=== PATIENT | female | born 1970 | race Caucasian/White ===

== ENCOUNTER 2016-06-10 05:15 | Inpatient (IN) | payer OTHER ==
[2016-05-31 10:54] VITALS: BMI 33.0
--- NOTE | 2016-05-31 11:22 | PAT Medication Instructions ---
Service Date May 31, 2016. Current Home Medication List Cholecalciferol (Vitamin D3), 5,000 UNITS PO QAM Duloxetine Hcl (Cymbalta), 30 MG PO BID Fluticasone Propionate (Nasal) (Flonase Allergy Relief), 1 SPRAY NA BID Methocarbamol (Methocarbamol), 375-750 MG PO Q8 PRN for Back Spasm Naproxen (Naprosyn), 500 MG PO BID Tramadol Hcl (Ultram), 50 MG PO Q4H PRN for Knee Pain Trazodone Hcl (Trazodone), 50 MG PO HS Medication Instructions For Your Scheduled Surgery - Hold the following medications the morning of surgery: Methocarbamol (Methocarbamol), 375-750 MG PO Q8 PRN for Back Spasm Naproxen (Naprosyn), 500 MG PO BID (not told to stop by surgeon) Cholecalciferol (Vitamin D3), 5,000 UNITS PO QAM - Take the following medications the morning of surgery with a sip of water: Tramadol Hcl (Ultram), 50 MG PO Q4H PRN for Knee Pain (can take up to four hours prior to surgery if needed) Fluticasone Propionate (Nasal) (Flonase Allergy Relief), 1 SPRAY NA BID Duloxetine Hcl (Cymbalta), 30 MG PO BID - Take the following medications as scheduled the night before surgery: Trazodone Hcl (Trazodone), 50 MG PO HS Tramadol Hcl (Ultram), 50 MG PO Q4H PRN for Knee Pain Methocarbamol (Methocarbamol), 375-750 MG PO Q8 PRN for Back Spasm Fluticasone Propionate (Nasal) (Flonase Allergy Relief), 1 SPRAY NA BID Duloxetine Hcl (Cymbalta), 30 MG PO BID If you have any questions please call us at [phone] or [phone] ( Jaqueline) or [phone]
--- NOTE | 2016-05-31 12:06 | DIAGNOSTIC IMAGING REPORT ---
CHEST PREADMISSION(PA/LAT) CLINICAL HISTORY: Preoperative chest COMPARISON STUDY: 11/15/2012 FINDINGS: The cardiac and mediastinal contours are normal. There is no evidence of focal pulmonary consolidation. There is no evidence of failure. No pleural effusions are visualized.[ IMPRESSION: No active disease in the chest. Electronically signed by: Francisco Rose M.D. 05/31/2016 12:04 PM Dictated Date/Time: 05/31/2016 12:04 PM
[2016-05-31 12:08] LABS: BASO % 0.4 %; BASO ABS # 0.02 K/uL (0-0.2); COMPLETE YES; EOS % 2.1 %; HEMATOCRIT 36.5 % (37-47); LYMPH % 30.7 %; LYMPH ABS # 1.64 K/uL (1.2-3.4); MEAN CELL VOLUME 92.2 fL (80-100); MEAN CORPUSCULAR HEMOGLOBIN 30.8 pg (25-34); MEAN CORPUSCULAR HGB CONC 33.4 g/dl (32-36); MEAN PLATELET VOLUME 11.8 fL (7.4-10.4); MONO % 6.9 %; NEUT % 59.9 %; PLATELET COUNT 181 K/uL (130-400); RED BLOOD COUNT 3.96 M/uL (4.2-5.4); WHITE BLOOD COUNT 5.35 K/uL (4.8-10.8)
[2016-05-31 12:13] LABS: URINE APPEARANCE CLEAR (CLEAR); URINE BILIRUBIN NEG (NEG); URINE COLOR YELLOW; URINE EPITHELIAL CELL AUTO >30 /lpf (0-5); URINE NITRITE NEG (NEG); URINE PH 8.5 (4.5-7.5); URINE SPECIFIC GRAVITY 1.014 (1.000-1.030); UROBILINOGEN NEG (NEG)
[2016-05-31 12:22] LABS: MANUAL MICROSCOPIC REQUIRED? NO; REVIEW REQ? NO
[2016-05-31 12:29] LABS: BUN/CREATININE RATIO 17.9 (10-20); CREATININE 0.88 mg/dl (0.60-1.20)
[2016-06-10] VITALS (7 sets, daily range): BP systolic 97–159; BP diastolic 58–72; PULSE 67–87; TEMP 36.6–37; O2SAT 95–100; Ht 172.7 cm; Wt 97.7 kg
[~2016-06-10] VITALS: Ht 172.7 cm; Wt 97.7 kg
[~2016-06-10 05:15] MED LIST: CHOL1000 PO; CYM/30 PO; FLUT0.15; NAPR-1169 PO; RBX750 PO; TRAZ50TA35 PO; ULT/50 PO
[2016-06-10] MEDS ORDERED: CeleBREX 200 MG CAP PO SCH (06:00)
[2016-06-10] MEDS ORDERED: PREGABALIN 75 MG CAP PO SCH (06:00)
[2016-06-10] MEDS ORDERED: LACTATED RINGER'S 1000ML 1,000 ML IV SCH (06:00)
[2016-06-10] MEDS ORDERED: CEFAZOLIN 2000 MG/60 ML D5W IV SCH (06:00)
[2016-06-10] MEDS ORDERED: MIDAZOLAM HCL 1 MG/ML 2ML VIAL ONE (06:39)
[2016-06-10] MEDS ORDERED: FENTANYL CITRATE INJ 50 MCG/1 ML 2 ML VIAL ONE ×2 (06:39→08:09)
[2016-06-10] MEDS ORDERED: HYDROmorphone INJ 2 MG/ML SYR/VIAL IV PRN (07:15)
[2016-06-10] MEDS ORDERED: LABETALOL HCL IV 5 MG/ML 20ML IV PRN (07:15)
[2016-06-10] MEDS ORDERED: PHENYLEPHRINE 100MCG/ML 5ML SYR IV PRN (07:15)
[2016-06-10] MEDS ORDERED: NALOXONE HCL 0.4 MG/1 ML VIAL/CARP IV PRN ×3 (07:15→09:00)
[2016-06-10] MEDS ORDERED: FLUMAZENIL 0.1 MG/1 ML 10 ML VIAL IV PRN (07:15)
[2016-06-10] MEDS ORDERED: ONDANSETRON INJ 2 MG/ML 2 ML VIAL IV PRN ×2 (07:15→09:00)
[2016-06-10] MEDS ORDERED: MEPERIDINE HCL 25 MG/ML CARP IV PRN (07:15)
[2016-06-10] MEDS ORDERED: ATROPINE SULFATE 0.1 MG/ML 5ML SYR IV PRN (07:15)
[2016-06-10] MEDS ORDERED: EpHEDrine SULFATE INJ 50 MG/ML AMP IV PRN (07:15)
--- NOTE | 2016-06-10 07:43 | History and Physical ---
History & Physical Date Jun 10, 2016. Chief Complaint LBP and leg pain History of Present Illness The patient is a 45 year old female with complaints of above due to MRI and xray documented L4-5 stenosis and gr I deg spondylolisthesis. she failed to respond to non op treatment. intermittent numbness L LE. no weakness Past Medical/Surgical History Medical Problems: (1) Arthritis (2) DM (diabetes mellitus) ?ank spondylitis R GOYO R shoulder surg obesity Additional History Hepatic Disease: No Endocrine Disorder: Yes Kidney Disease: No Hypertension: No Heart Disease: No Bleeding Tendencies: No Infectious Diseases: No Allergies Coded Allergies: Hydrocodone (Verified Allergy, Intermediate, face breaks out, 06/10/16) Acetaminophen (Verified Allergy, Unknown, rash, 06/10/16) Home Medications Scheduled Cholecalciferol (Vitamin D3), 5,000 UNITS PO QAM Duloxetine Hcl (Cymbalta), 30 MG PO BID Fluticasone Propionate (Nasal) (Flonase Allergy Relief), 1 SPRAY NA BID Naproxen (Naprosyn), 500 MG PO BID Trazodone Hcl (Trazodone), 50 MG PO HS Scheduled PRN Methocarbamol (Methocarbamol), 375-750 MG PO Q8 PRN for Back Spasm Tramadol Hcl (Ultram), 50 MG PO Q4H PRN for Knee Pain Physical Examination Skin: warm/dry Eyes: normal inspection, sclerae normal ENT: normal ENT inspection Head: normocephalic, atraumatic Neck: supple, trachea midline Respiratory/Chest: lungs clear, no respiratory distress Cardiovascular: regular rate, rhythm Back: normal inspection Extremities: normal inspection, normal range of motion Neurologic/Psych: no motor/sensory deficits, alert, normal reflexes, oriented x 3 Diagnosis L4-5 stenosis/degen spondy gr I Plan of Treatment L4-5 dec/fusion
[2016-06-10] MEDS ORDERED: HYDROmorphone INJ 2 MG/ML SYR/VIAL ONE (08:09)
[2016-06-10] MEDS ORDERED: THROMBIN 5000 UNITS KIT TOP ONE (08:25)
[2016-06-10] MEDS ORDERED: BACITRACIN 50000 UNIT VIAL IR ONE (08:25)
[2016-06-10] MEDS ORDERED: FLOSEAL HEMOSTATIC MATRIX 10ML TOP ONE (08:25)
[2016-06-10] MEDS ORDERED: DURASEAL DURAL SEALANT 5ML TOP ONE (08:25)
[2016-06-10] MEDS ORDERED: THROMBIN FOR SOLN 20000 UNIT KIT TOP ONE (08:25)
[2016-06-10] MEDS ORDERED: BUPIVACAINE/EPINEPHRINE 0.5% MPF 1:200,000 30 ML VIAL INJ ONE (08:25)
[2016-06-10] MEDS ORDERED: SODIUM CHLORIDE 0.9% 1000ML 1,000 ML IV SCH (08:58)
--- NOTE | 2016-06-10 08:58 | [facility] Post Operative Brief Note ---
Immediate Operative Summary Operative Date Jun 10, 2016. Pre-Operative Diagnosis SPINAL STENOSIS Post-Operative Diagnosis SAME PREOP Procedure(s) Performed L4-5 DECOMPRESSION AND INSTRUMENTED FUSION,, USE OF INFUSE AND ARTERIOCYTE Surgeon DR. Jose NEWMAN Purchasing Buyer Surgeon(s) GISSEL PAC Estimated Blood Loss 325ml Findings dict Specimens NONE
[2016-06-10] MEDS ORDERED: HYDROmorphone HCL 0.5MG/ML 50 ML CASSETTE IV PRN (09:00)
[2016-06-10] MEDS ORDERED: METOCLOPRAMIDE HCL INJ 5 MG/ML 2 ML VIAL IV PRN (09:00)
[2016-06-10] MEDS ORDERED: LORAZEPAM INJ 0.5 MG in SYRINGE 0.75 ML IV PRN (09:00)
[2016-06-10] MEDS ORDERED: SOD PHOSPHATE/SOD BIPHOSPHATE ENEMA 132 ML BTL PR PRN (09:00)
[2016-06-10] MEDS ORDERED: MAGNESIUM HYDROXIDE SUSP 30 ML UDC PO PRN (09:00)
[2016-06-10] MEDS ORDERED: PROMETHAZINE HCL INJ 12.5 MG in SODIUM CHLORIDE 0.9% 50ML 50 ML IV PRN (09:00)
[2016-06-10] MEDS ORDERED: FAMOTIDINE 20 MG TAB PO PRN (09:00)
[2016-06-10] MEDS ORDERED: LORAZEPAM 0.5 MG TAB PO PRN (09:00)
[2016-06-10] MEDS ORDERED: hydrOXYzine HCL 25 MG TAB PO PRN (09:00)
[2016-06-10] MEDS ORDERED: BISACODYL 10 MG SUPP PR PRN (09:00)
[2016-06-10] MEDS ORDERED: ALUMINUM/MAGNESIUM SUSP 30 ML UDC PO PRN (09:00)
[2016-06-10] MEDS ORDERED: HYDROmorphone HCL 0.5MG/ML 50 ML CASSETTE ONE (09:10)
[2016-06-10] MEDS ORDERED: RXC5 PO (09:11)
--- NOTE | 2016-06-10 09:12 | Discharge Instructions ---
Discharge Instructions Admission Reason for Admission: Lumbar Spinal Stenosis Discharge Discharge Diagnosis / Problem: Lumbar Stenosis Discharge Goals Goal(s): Decrease discomfort, Improve function, Increase independence Activity Recommendations Activity Limitations: as noted below Lifting Limitations: no more than 5 pounds Exercise/Sports Limitations: until after follow-up appointment May Resume Sexual Activity: after follow-up appointment Shower/Bathe: may shower/bathe in 3 days . Instructions / Follow-Up Instructions / Follow-Up ACTIVITY RECOMMENDATIONS: SELF CARE INSTRUCTIONS AFTER THORACIC/LUMBAR FUSIONS 1. You may walk to your tolerance. It is good exercise for your legs and back. Expect some back and intermittent leg aches and pains. 2. You may perform "counter-top" level activities (make a sandwich, stephen with a project, etc.). 3. No bending or lifting of more than 10 pounds or back twisting of any nature (roll like a log when turning in bed). 4. You may ride in a car for 20-30 minutes at a time. No driving until after your first visit with your doctor. 5. Frequent changes of position and restricting sitting to 30 minutes at a time will help limit the amount of back spasms and stiffness you may experience. 6. You may discontinue the use of ambulatory aids (cane, crutches, etc.) once your strength and confidence allow. 7. You may lokie engineer the shower and let water strike your incision when you arrive home at least once daily. Do not take a tub bath, sit in a hot tub or go into a swimming pool until after your first recheck in the office. SPECIAL CARE INSTRUCTIONS: VERY IMPORTANT TO READ AND REVIEW A. Your surgical incision has been closed with a cosmetic suture under the skin that will dissolve in about 6 weeks. In 14 days, you can use a pair of clean scissors and cut the suture that is left outside of the skin at the ends of your incision. 1. The small skin tapes can be removed 7 days after surgery if they have not fallen off by that point. 2. You may keep the wound open to air as much as possible to promote healing after post-op day number 5 unless told otherwise by your doctor. 3. If you think the wound looks like it is becoming infected (redness or worsening drainage) and/or you are experiencing fever, chill or worsening back pain and muscle spasms, contact the office so that we may evaluate you as soon as possible. B. Complications are uncommon, but please contact us if you have any signs or symptoms of: 1. wound infection (fever higher than 102.5 degrees F, redness, separation of wound, drainage, or increasing pain from the incision) 2. blood clots in legs (pain, swelling, redness and warmth in legs) 3. urinary tract infection (fever higher than 102.5 degrees F, burning upon urination or increased frequency of urination) 4. nerve problems (inability to walk on your toes or heels, numbness, loss of bowel or bladder control) 5. any other symptoms that concern you C. Please call the office at if you have any concerns or questions about your operation or recovery. D. No smoking! Smoking drastically decreases the chance of a solid fusion. E. Do not take any anti-inflammatory medications (Indocin, Advil, Motrin, Aspirin, Naprosyn, etc.) as these may inhibit the chance of a solid fusion. Tylenol is okay to take for pain. MANAGING PAIN AFTER SPINAL SURGERY 1. Narcotic medication is intended for short-term use and will be provided for surgical pain. Surgical pain usually lasts for a period of 4-6 weeks. Narcotic medication includes Percocet, Vicodin, Darvocet, Tylenol #3 or Lortab. 2. Longer-term pain is more appropriately treated with non-narcotic medication such as Tylenol ES. 3. Muscle spasm is not appropriately treated with narcotics. Muscle relaxers such as Soma, Flexeril or Skelaxin can be used along with Tylenol ES. 4. Remember that we all live with some "aches and pains". This is not unusual or uncommon after an injury or as we get older. a. Back pain is expected and may include muscle spasms for 4 to 6 weeks after surgery. The pain should gradually improve. If the pain worsens for no apparent reason, please contact the office. b. Intermittent leg pain may also be experienced and should not be concerned about unless it worsens for no apparent reason. If so, please contact the office. 5. We will provide appropriate medication within the normal guidelines of their prescribed use. We will also be very cautious and aware of potential abuse and extended duration of patients' medication needs. a. Pain medications are for your comfort and to assist with sleep and rest so that the tissue can heal. They are not provided in order to return to normal activity and should not be used through the day. To do so or worsening pain at night can result from ongoing tissue damage and development of tolerance to the prescribed medicine. 6. Please allow 2-3 days to process refills. Prescriptions will not be mailed but must be picked up at the office. FOLLOW UP VISIT: Keep your scheduled follow-up appointment. Any questions, please call the office at . Current Hospital Diet Patient's current hospital diet: Regular Diet Discharge Diet Recommended Diet: Regular Diet Procedures Procedures Performed: L4-5 DECOMPRESSION AND INSTRUMENTED FUSION,, USE OF INFUSE AND ARTERIOCYTE Pending Studies Studies pending at discharge: no Laboratory Results Hemoglobin A1c Test 03/19/16 11:44 Range/Units Estimated Average Glucose 117 mg/dl Hemoglobin A1c 5.7 H 4.5-5.6 % Medical Emergencies . Who to Call and When: Medical Emergencies: If at any time you feel your situation is an emergency, please call 911 immediately. . Non-Emergent Contact Non-Emergency issues call your: Surgeon Call Non-Emergent contact if: temperature is above 101, your pain is not controlled, your pain is worsening, wound has increased drainage, wound has increased redness, wound has increased pain, you have any medication questions . "Provider Documentation" section prepared by Kenan Hoover. VTE Core Measure Inpt VTE Proph given/why not?: Chiquis Parmar
[2016-06-10] MEDS ORDERED: DEXAMETHASONE SOD INJ 4 MG/ML VIAL ONE (09:15)
[2016-06-10] MEDS ORDERED: PROPOFOL IV EMULSION 10 MG/ML 20 ML VIAL IV ONE (09:15)
[2016-06-10] MEDS ORDERED: LIDOCAINE HCL 2% 2 ML VIAL (20MG/ML) ONE (09:15)
[2016-06-10] MEDS ORDERED: NEOSTIGMINE METHYLSULFATE 1 MG/ML 10ML VIAL ONE (09:15)
[2016-06-10] MEDS ORDERED: GLYCOPYRROLATE INJ 0.2 MG/ML VIAL ONE (09:15)
[2016-06-10] MEDS ORDERED: ROCURONIUM BROMIDE 10 MG/ML 5 ML VIAL ONE (09:15)
[2016-06-10] MEDS: FENTANYL CITRATE INJ 50 MCG/1 ML 2 ML VIAL IV PRN ×4 (09:15→09:45)
[2016-06-10] MEDS ORDERED: EpHEDrine SULFATE 50MG/5ML SYR ONE (09:15)
[2016-06-10] MEDS ORDERED: ONDANSETRON INJ 2 MG/ML 2 ML VIAL ONE (09:15)
--- NOTE | 2016-06-10 09:17 | DIAGNOSTIC IMAGING REPORT ---
LUMBAR SPINE, INTRAOPERATIVE FLUOROSCOPY HISTORY: L4-5 decompression/fusion. FLUOROSCOPY TIME: 5 seconds. FINDINGS: Intraoperative fluoroscopy was provided for the lumbar spine. 2 fluoroscopic spot images were obtained. Posterior decompression and fusion at L4-L5 with pedicle screws and rods. The hardware appears intact. IMPRESSION: Fluoroscopy provided for a L4-5 decompression/fusion. Electronically signed by: Junaid Ro M.D. 06/10/2016 9:15 AM Dictated Date/Time: 06/10/2016 9:15 AM
--- NOTE | 2016-06-10 10:11 | Anesthesiology Progress Note ---
Anesthesia Post Op Note Date & Time Jun 10, 2016 at 10:10 Vital Signs Pain Intensity: 3 Vital Signs Past 12 Hours Date Time Temp Pulse Resp B/P Pulse Ox O2 Delivery O2 Flow Rate FiO2 06/10/16 09:55 80 16 126/68 99 Mask 5 06/10/16 09:45 82 16 128/75 99 Mask 5 06/10/16 09:35 85 16 131/69 100 Mask 5 06/10/16 09:25 75 14 138/75 100 Mask 10 06/10/16 09:15 65 14 129/70 100 Mask 10 06/10/16 09:12 36.6 91 15 123/78 100 Mask 10 06/10/16 05:35 36.8 67 18 108/72 95 Room Air Notes Mental Status: alert / awake / arousable, participated in evaluation Pt Amnestic to Procedure: Yes Nausea / Vomiting: adequately controlled Pain: adequately controlled Airway Patency, RR, SpO2: stable & adequate BP & HR: stable & adequate Hydration State: stable & adequate Anesthetic Complications: no major complications apparent
--- NOTE | 2016-06-10 11:22 | History & Physical Bridge Note ---
H&P Re-Evaluation Bridge Note: I have examined the patient, reviewed the History & Physical and in the interval since the performance of the History & Physical I have noted the following changes of clinical significance: No changes noted
[2016-06-10] MEDS: LACTATED RINGER'S 1000ML 1,000 ML IV SCH ×2 (11:29→21:29)
--- NOTE | 2016-06-10 12:23 | OPERATIVE REPORT ---
DATE OF OPERATION: 06/10/2016 PREOPERATIVE DIAGNOSES: 1. L4-L5 spinal stenosis. 2. L4-L5 degenerative spondylolisthesis -- grade 1. POSTOPERATIVE DIAGNOSIS: Same. PROCEDURES: 1. L4 laminectomy with bilateral medial facetectomies. 2. Nonsegmental pedicle screw instrumentation -- bilateral L4 and L5 with K2M [place] pedicle screws. 3. Posterolateral fusion L4-L5 -- bilateral with Infuse BMP on a collagen sponge, tricalcium phosphate, local bone, bone putty and bone marrow aspirate. 4. Right iliac crest bone marrow aspiration, stem cell concentration Arteriocyte. SURGEON: Dr. Meraz. SPORTS DOCTOR: Kenan Hoover PA-C. He participated in all portions of the procedure and was critical for performance of the procedure. Please note Kenan Hoover, participated with positioning, prepping, draping, retraction, and wound closure. ANESTHESIA: General endotracheal anesthesia. ESTIMATED BLOOD LOSS: Minimal. IV FLUIDS: Per anesthesia record. OPERATION AND FINDINGS: PROCEDURE: After identification of patient and operative level, she was brought to the OR where she underwent induction of general anesthesia. She was then positioned prone on [facility] OR table. All bony prominences were well padded. Care was taken to avoid pressure on the periorbital area. Lumbosacral area was sterilely prepped and draped in usual fashion. Antibiotics were administered. Time-out was performed. Level was confirmed and skin incision was infiltrated with 0.5% Marcaine with epinephrine. I made skin incision from spinous process of L3-L5 and performed routine posterior exposure, placed Gelpi retractors and confirmed level with fluoroscopy. I did a L4 laminectomy and removed ligamentum flavum and the medial facets at L4-5 and completed decompression with Kerrisons. I palpated the nerve roots were decompressed bilaterally at L4 and L5 and then proceeded to place pedicle screws bilaterally at each level. Screws were checked with fluoroscopy. They had good purchase. I lowered the Hakeem frame and applied rods and end caps final tightening. I irrigated with bacitracin solution and decorticated transverse process of L4-L5 with a high speed bur as well as the facets. I aspirated bone marrow from the right iliac crest via separate stab incision with a Jamshidi needle and concentrated with Arteriocyte system and applied to bone graft. I then confirmed hemostasis and closed in layered fashion over MAYA drain. All sponge and needle counts were correct at the end of the case. I attest to the content of the Intraoperative Record and any orders documented therein. Any exceptio ns are noted below.
[2016-06-10] MEDS: CLINDAMYCIN IV 600 MG in DEXTROSE 5% ADD-VANTAGE 50ML 50 ML IV SCH (16:27)
[2016-06-10] MEDS: DEXAMETHASONE INJ 6 MG in SYRINGE 0 ML IV SCH (16:27)
[2016-06-10] MEDS: DOCUSATE SODIUM/SENNA 50/8.6MG TAB PO SCH (20:37)
[2016-06-11] MEDS: DEXAMETHASONE INJ 6 MG in SYRINGE 0 ML IV SCH ×2 (00:20→08:03)
[2016-06-11] MEDS: CLINDAMYCIN IV 600 MG in DEXTROSE 5% ADD-VANTAGE 50ML 50 ML IV SCH (00:20)
[2016-06-11 03:39] VITALS: BP 104/68; PULSE 85; TEMP 36.7; O2SAT 95
[2016-06-11] MEDS ORDERED: DC PCA SCH (06:00)
[2016-06-11] MEDS ORDERED: HYDROmorphone INJ 0.5 MG/0.5 ML SYR IV PRN (06:00)
[2016-06-11] MEDS ORDERED: NURSING DECISION MEDICATION ORDER SCH (06:30)
[2016-06-11 07:01] VITALS: BP 104/63; PULSE 77; TEMP 36.9; O2SAT 94
--- NOTE | 2016-06-11 07:04 | Orthopedic Progress Note ---
Orthopedic Progress Note Date of Service Jun 11, 2016. Subjective Reports: feeling well, pain controlled w PO medications, Denies: SOB, calf pain , chest pain, complaints, light headedness, nausea / vomiting Additional Notes: Doing well with no complaints. Resting comfortably. Has been out of bed to chair without difficulty. Pre op symptoms improved. Back is controlled. Medically stable. Objective calves soft nontender, N/V intact, capillary refill less than 2 sec., dressing C /D/I, A&O x3, toes mobile, hemovac drainage Date Time Temp Pulse Resp B/P Pulse Ox O2 Delivery O2 Flow Rate FiO2 06/11/16 07:01 36.9 77 19 104/63 94 Room Air 06/11/16 03:39 36.7 85 16 104/68 95 Room Air 06/10/16 23:55 Room Air 06/10/16 23:10 37.0 73 16 97/58 95 Room Air 06/10/16 19:18 36.6 73 16 101/64 95 Room Air 06/10/16 14:30 Nasal Cannula 2.0 06/10/16 14:00 36.7 69 19 103/61 99 Nasal Cannula 2.0 06/10/16 12:04 36.7 78 18 103/67 100 Nasal Cannula 2.0 06/10/16 11:27 36.6 83 16 114/72 98 Nasal Cannula 2.0 06/10/16 11:13 36.9 87 16 159/69 96 Nasal Cannula 2.0 06/10/16 10:45 36.6 86 18 121/87 99 Nasal Cannula 3 06/10/16 10:30 80 18 121/73 99 Mask 5 06/10/16 10:15 78 15 131/70 99 Mask 5 06/10/16 10:05 80 15 126/69 99 Mask 5 06/10/16 10:05 36.7 80 15 119/70 99 Mask 5 06/10/16 09:55 80 16 126/68 99 Mask 5 06/10/16 09:45 82 16 128/75 99 Mask 5 06/10/16 09:35 85 16 131/69 100 Mask 5 06/10/16 09:25 75 14 138/75 100 Mask 10 06/10/16 09:15 65 14 129/70 100 Mask 10 06/10/16 09:12 36.6 91 15 123/78 100 Mask 10 Laboratory Results 24 Hours: Test 06/11/16 04:44 Assessment & Plan Assessment: s/p lumbar decompression and fusion Plan: PT, pain control, d/c holland, continue MAYA, dvt prophylaxis, expect discharge home sat morning.
[2016-06-11 07:30] LABS: COMPLETE YES; HEMATOCRIT 31.9 % (37-47); IG% 0.2 %; LYMPH ABS # 0.72 K/uL (1.2-3.4); MEAN CELL VOLUME 91.9 fL (80-100); MEAN CORPUSCULAR HEMOGLOBIN 30.5 pg (25-34); MEAN CORPUSCULAR HGB CONC 33.2 g/dl (32-36); MEAN PLATELET VOLUME 11.7 fL (7.4-10.4); MONO % 3.5 %; NEUT % 90.3 %; PLATELET COUNT 176 K/uL (130-400); RED BLOOD COUNT 3.47 M/uL (4.2-5.4)
--- NOTE | 2016-06-11 07:33 | Anesthesiology Progress Note ---
Anesthesia Post Op Note Date & Time Jun 11, 2016 at 07:32 Vital Signs Pain Intensity: 0.0 Vital Signs Past 12 Hours Date Time Temp Pulse Resp B/P Pulse Ox O2 Delivery O2 Flow Rate FiO2 06/11/16 07:01 36.9 77 19 104/63 94 Room Air 06/11/16 03:39 36.7 85 16 104/68 95 Room Air 06/10/16 23:55 Room Air 06/10/16 23:10 37.0 73 16 97/58 95 Room Air Notes Mental Status: alert / awake / arousable, participated in evaluation Pt Amnestic to Procedure: Yes Nausea / Vomiting: adequately controlled Pain: adequately controlled Airway Patency, RR, SpO2: stable & adequate BP & HR: stable & adequate Hydration State: stable & adequate Anesthetic Complications: no major complications apparent
[2016-06-11 07:59] LABS: BUN/CREATININE RATIO 18.9 (10-20); CALCIUM 9.1 mg/dl (8.5-10.1); CREATININE 0.76 mg/dl (0.60-1.20); POTASSIUM 3.9 mmol/L (3.5-5.1)
[2016-06-11 10:45] VITALS: BP 126/70; PULSE 85; O2SAT 95
[2016-06-11] MEDS: OXYCODONE HCL IR 5 MG TAB (IMMEDIATE RELEASE) PO PRN ×2 (12:38→20:41)
[2016-06-11 15:12] VITALS: BP 108/68; PULSE 84; TEMP 36.7; O2SAT 96
[2016-06-11 16:00] VITALS: O2SAT 96
[2016-06-11] MEDS: DOCUSATE SODIUM/SENNA 50/8.6MG TAB PO SCH (20:41)
[2016-06-11 22:47] VITALS: BP 116/74; PULSE 66; TEMP 36.7; O2SAT 96
[2016-06-12] MEDS ORDERED: POLYETHYLENE (MIRALAX) 17 GM PACK PO SCH (06:00)
[2016-06-12 07:08] VITALS: BP 102/69; PULSE 63; TEMP 36.5; O2SAT 99
[2016-06-12] MEDS: OXYCODONE HCL IR 5 MG TAB (IMMEDIATE RELEASE) PO PRN (08:24)
[2016-06-12 11:03] VITALS: BP 102/69; PULSE 63; TEMP 36.5; O2SAT 99
--- NOTE | 2016-06-21 14:54 | DISCHARGE SUMMARY ---
PRINCIPAL DIAGNOSIS: L4-L5 spinal stenosis, grade 1 spondylolisthesis. POSTOPERATIVE DIAGNOSIS: Same. PROCEDURE: L4-L5 decompression and instrumented fusion. SURGEON: Dr. Michael Meraz. ELASTIC CUTTER: Kenan Hoover PA-C. HISTORY OF PRESENT ILLNESS: Please refer to EMR. HOSPITAL COURSE: On the above date of 06/10/2016 Ms. Kilgore was admitted to [facility] with the above diagnoses. She was taken to preoperative holding where she was identified, evaluated and cleared for surgical procedure. She was transported to the operating room, introduced with general endotracheal anesthesia, sterile conditions were set and she successfully underwent the above procedure without complication or issues. She was awakened in stable and satisfactory condition and transported to postoperative recovery. Here her vital signs and pain were monitored and managed. She remained medically stable taken to orthopedic floor. Throughout her stay, her vital signs, pain and labs were routinely monitored and managed through physician direction probably with no incidences. She participated in physical therapy with good noted progress. MAYA output significantly diminished throughout her hospitalization. DVT and GI prophylactic measures were intact. She was evaluated on 06/12/2016 by provider and indicated for return home. On this date, she was discharged from [facility]. DISPOSITION: Home. DISPOSITION CONDITION: Stable. NOTED COMPLICATIONS OR ISSUES: Zero. DISCHARGE INSTRUCTIONS: Please refer to EMR.
== END 2016-06-12 11:50 | disposition home or self-care (01) | DRG 460 ==
LOC: ENRESERVTM → ENRESERVDT → C.ACU 05:15 → C.MSW 07:30
PROVIDERS: ADMIT Orthopaedic Surgery Orthopaedic Surgery of the Spine; ATTEND Orthopaedic Surgery Orthopaedic Surgery of the Spine
PROC: 3E0V0GB Introduction of Recombinant Bone Morphogenetic Protein into Bones, Open Approach (ICD-10-PCS; principal; 2016-06-10 07:30)
PROC: 07DR3ZZ Extraction of Iliac Bone Marrow, Percutaneous Approach (ICD-10-PCS; principal; 2016-06-10 07:30)
PROC: 0SG0071 Fusion of Lumbar Vertebral Joint with Autologous Tissue Substitute, Posterior Approach, Posterior Column, Open Approach (ICD-10-PCS; principal; 2016-06-10 07:30)
DX: M48.06 Spinal stenosis, lumbar region (principal); M43.16 Spondylolisthesis, lumbar region; E11.9 Type 2 diabetes mellitus without complications; Z96.641 Presence of right artificial hip joint; E66.9 Obesity, unspecified; Z68.32 Body mass index [BMI] 32.0-32.9, adult

== ENCOUNTER → 2016-06-17 | Outpatient (CLI) | payer OTHER ==
[~2016-06-17] MED LIST changes: -NAPR-1169 PO; +RXC5 PO; -TRAZ50TA35 PO; -ULT/50 PO
--- NOTE | 2016-06-17 11:35 | DIAGNOSTIC IMAGING REPORT ---
LEFT LOWER EXTREMITY VENOUS DOPPLER CLINICAL HISTORY: Left leg pain and swelling. COMPARISON STUDY: No previous studies for comparison. TECHNIQUE: Sonography of the deep venous system of the left lower extremity was performed. Compression and augmentation were evaluated. FINDINGS: The common femoral, superficial femoral and popliteal veins were compressible. Augmentation was normal. Flow was shown within the deep calf vessels. IMPRESSION: No evidence of deep venous thrombus within the left lower extremity. Electronically signed by: Charles Fung M.D. 06/17/2016 11:34 AM Dictated Date/Time: 06/17/2016 11:33 AM
== END | disposition home or self-care (01) ==
LOC: C.ULTR 11:03
PROVIDERS: ATTEND Orthopaedic Surgery Orthopaedic Surgery of the Spine
DX: M79.605 Pain in left leg (principal)

== ENCOUNTER → 2016-09-16 | Outpatient (CLI) | payer OTHER ==
[2016-09-16 12:05] LABS: BASO % 0.4 %; BASO ABS # 0.02 K/uL (0-0.2); COMPLETE YES; EOS % 2.4 %; HEMATOCRIT 36.7 % (37-47); IG% 0.2 %; LYMPH % 31.3 %; LYMPH ABS # 1.71 K/uL (1.2-3.4); MEAN CELL VOLUME 92.4 fL (80-100); MEAN CORPUSCULAR HEMOGLOBIN 29.5 pg (25-34); MEAN CORPUSCULAR HGB CONC 31.9 g/dl (32-36); MEAN PLATELET VOLUME 11.8 fL (7.4-10.4); MONO % 9.1 %; NEUT % 56.6 %; PLATELET COUNT 177 K/uL (130-400); RED BLOOD COUNT 3.97 M/uL (4.2-5.4); WHITE BLOOD COUNT 5.47 K/uL (4.8-10.8)
[2016-09-16 12:55] LABS: ESTIMATED AVERAGE GLUCOSE 117 mg/dl; HA1C FLAG Normal (Normal)
[2016-09-16 13:25] LABS: BLOOD UREA NITROGEN 17 mg/dl (7-18); BUN/CREATININE RATIO 21.5 (10-20); CARBON DIOXIDE 29 mmol/L (21-32); CHLORIDE 109 mmol/L (98-107); CREATININE 0.77 mg/dl (0.60-1.20); GLUCOSE 83 mg/dl (70-99); POTASSIUM 3.7 mmol/L (3.5-5.1); SODIUM 143 mmol/L (136-145)
[2016-09-16 13:32] LABS: CHOLESTEROL 216 mg/dl (0-200); CHOLESTEROL/HDL RATIO 3.7; HDL CHOLESTEROL 59 mg/dl; LDL CHOLESTEROL CALCULATED 137 mg/dl; TRIGLYCERIDES 99 mg/dl (0-150); VERY LOW DENSITY LIPOPROT CALC 20 mg/dl
== END | disposition home or self-care (01) ==
LOC: C.LABPVFM 10:29
PROVIDERS: ATTEND Nurse Practitioner
DX: E11.9 Type 2 diabetes mellitus without complications (principal); M25.50 Pain in unspecified joint; D64.9 Anemia, unspecified

== ENCOUNTER → 2017-02-08 | Outpatient (CLI) | payer OTHER | END | disposition home or self-care (01) | LOC: C.PAPS 14:51 | PROVIDERS: ATTEND Obstetrics & Gynecology | DX: Z12.4 Encounter for screening for malignant neoplasm of cervix (principal) ==

== ENCOUNTER → 2017-02-09 | Outpatient (CLI) | payer OTHER ==
--- NOTE | 2017-02-09 15:17 | MAMMOGRAPHY REPORT ---
BILATERAL DIGITAL SCREENING MAMMOGRAM TOMOSYNTHESIS WITH CAD: 02/09/2017 CLINICAL HISTORY: Routine screening. TECHNIQUE: Breast tomosynthesis in addition to standard 2D mammography was performed. Current study was also evaluated with a Computer Aided Detection (CAD) system. COMPARISON: Comparison is made to exams dated: 12/18/2015 mammogram, 11/26/2014 mammogram, and 2 mammogram - [facility]. BREAST COMPOSITION: There are scattered areas of fibroglandular density in both breasts. FINDINGS: The parenchymal pattern is unchanged. No developing mass, architectural distortion or clus ter of suspicious microcalcifications is seen in either breast. IMPRESSION: ACR BI-RADS CATEGORY 2: BENIGN There is no mammographic evidence of malignancy. A 1 year screening mammogram is recommended. The pa tient will receive written notification of the results. Approximately 10% of breast cancers are not detected with mammography. A negative mammographic report should not delay biopsy if a clinically suggestive mass is present. [place] Castañeda M.D. ay/:02/09/2017 12:14:00 Spoilage Worker: Jose Santos RT(R)(M), [facility] letter sent: Normal 1/2 BI-RADS Code: ACR BI-RADS Category 2: Benign
== END | disposition home or self-care (01) ==
LOC: C.MAMM 11:19
PROVIDERS: ATTEND Nurse Practitioner
DX: Z12.31 Encounter for screening mammogram for malignant neoplasm of breast (principal); R39.9 Unspecified symptoms and signs involving the genitourinary system

== ENCOUNTER → 2017-02-09 | Outpatient (CLI) | payer OTHER ==
[2017-02-09 14:10] LABS: URINE APPEARANCE CLEAR (CLEAR); URINE BILIRUBIN NEG (NEG); URINE COLOR YELLOW; URINE NITRITE NEG (NEG); URINE SPECIFIC GRAVITY 1.022 (1.000-1.030); UROBILINOGEN NEG (NEG)
[2017-02-09 14:22] LABS: MANUAL MICROSCOPIC REQUIRED? NO; REVIEW REQ? NO
== END | disposition home or self-care (01) ==
LOC: C.LABSPEC 13:19
PROVIDERS: ATTEND Obstetrics & Gynecology
DX: R39.9 Unspecified symptoms and signs involving the genitourinary system (principal)

== ENCOUNTER → 2017-03-17 | Outpatient (CLI) | payer OTHER ==
[2017-03-17 12:58] LABS: BASO % 0.5 %; BASO ABS # 0.03 K/uL (0-0.2); COMPLETE YES; EOS % 2.5 %; IG% 0.2 %; LYMPH % 26.6 %; LYMPH ABS # 1.59 K/uL (1.2-3.4); MEAN CELL VOLUME 92.3 fL (80-100); MEAN CORPUSCULAR HEMOGLOBIN 30.4 pg (25-34); MEAN PLATELET VOLUME 11.6 fL (7.4-10.4); NEUT % 61.2 %; PLATELET COUNT 180 K/uL (130-400); RED BLOOD COUNT 4.01 M/uL (4.2-5.4); WHITE BLOOD COUNT 5.98 K/uL (4.8-10.8)
[2017-03-17 13:33] LABS: BLOOD UREA NITROGEN 13 mg/dl (7-18); CALCIUM 9.1 mg/dl (8.5-10.1); CARBON DIOXIDE 27 mmol/L (21-32); CHLORIDE 108 mmol/L (98-107); CREATININE 0.83 mg/dl (0.60-1.20); GLUCOSE 88 mg/dl (70-99); SODIUM 141 mmol/L (136-145)
[2017-03-17 13:36] LABS: CHOLESTEROL 199 mg/dl (0-200); CHOLESTEROL/HDL RATIO 4.4; HDL CHOLESTEROL 45 mg/dl; LDL CHOLESTEROL CALCULATED 132 mg/dl; TRIGLYCERIDES 108 mg/dl (0-150); VERY LOW DENSITY LIPOPROT CALC 22 mg/dl
[2017-03-17 13:44] LABS: ESTIMATED AVERAGE GLUCOSE 117 mg/dl; HA1C FLAG Normal (Normal)
== END | disposition home or self-care (01) ==
LOC: C.LABPVFM 10:38
PROVIDERS: ATTEND Nurse Practitioner
DX: E11.9 Type 2 diabetes mellitus without complications (principal); E78.5 Hyperlipidemia, unspecified; D64.9 Anemia, unspecified

== ENCOUNTER → 2017-09-13 | Outpatient (CLI) | payer OTHER ==
[2017-09-13 13:04] LABS: HEMOGLOBIN A1C 5.6 % (4.5-5.6)
[2017-09-13 13:21] LABS: BLOOD UREA NITROGEN 22 mg/dl (7-18); CALCIUM 8.8 mg/dl (8.5-10.1); CARBON DIOXIDE 27 mmol/L (21-32); CREATININE 0.84 mg/dl (0.60-1.20); GLUCOSE 91 mg/dl (70-99); POTASSIUM 4.1 mmol/L (3.5-5.1); SODIUM 139 mmol/L (136-145)
== END | disposition home or self-care (01) ==
LOC: C.LABPVFM 10:13
PROVIDERS: ATTEND Nurse Practitioner
DX: E11.9 Type 2 diabetes mellitus without complications (principal)

== ENCOUNTER 2022-01-04 11:12 | Observation (INO) ==
--- NOTE | 2021-12-03 11:36 | PAT Medication Instructions ---
Medication Instructions Date of Service December 03, 2021 Home Medications Medication Instructions Recorded blood-glucose meter #1 ea 02/11/20 tizanidine 4 mg tablet 4 - 8 mg PO Q8H PRN muscle 10/30/21 spasticity #60 tabs tramadol 50 mg tablet 50 mg PO BID PRN pain #60 tabs 10/30/21 diclofenac sodium 1 % topical gel 2 gm topical QID PRN multivitamin 1 tab PO QAM blood sugar diagnostic (OneTouch Ultra Blue Test Strip) cholecalciferol (vitamin D3) 125 mcg (5,000 unit) tablet 5,000 units PO QAM cyanocobalamin (vitamin B-12) 2,500 mcg sublingual tablet 2,500 mcg sublingual QAM lancets 33 gauge (Lite Touch Lancets) blood-glucose meter tizanidine 4 mg tablet 4 - 8 mg PO Q8H PRN tramadol 50 mg tablet 50 mg PO BID PRN duloxetine 30 mg capsule,delayed release 30 mg PO PM duloxetine 60 mg capsule,delayed release 60 mg PO QAM fexofenadine 180 mg tablet 180 mg PO DAILY PRN fluticasone propionate 50 mcg/actuation nasal spray,suspension 2 spray intranasal DAILY PRN meloxicam 7.5 mg tablet 7.5 mg PO PM omeprazole 20 mg capsule,delayed release 20 mg PO QAM ASK your surgeon for instructions diclofenac sodium 1 % topical gel 2 gm topical QID PRN meloxicam 7.5 mg tablet 7.5 mg PO PM DO NOT take the morning of surgery multivitamin 1 tab PO QAM cholecalciferol (vitamin D3) 125 mcg (5,000 unit) tablet 5,000 units PO QAM cyanocobalamin (vitamin B-12) 2,500 mcg sublingual tablet 2,500 mcg sublingual QAM tizanidine 4 mg tablet 4 - 8 mg PO Q8H PRN fexofenadine 180 mg tablet 180 mg PO DAILY PRN Take morning of surgery With a small sip of water, OTHERWISE NOTHING TO EAT OR DRINK AFTER MIDNIGHT: tramadol 50 mg tablet 50 mg PO BID PRN(if needed) duloxetine 60 mg capsule,delayed release 60 mg PO QAM fluticasone propionate 50 mcg/actuation nasal spray,suspension 2 spray intranasal DAILY PRN omeprazole 20 mg capsule,delayed release 20 mg PO QAM Take evening before surgery tizanidine 4 mg tablet 4 - 8 mg PO Q8H PRN(if needed) tramadol 50 mg tablet 50 mg PO BID PRN(if needed) duloxetine 30 mg capsule,delayed release 30 mg PO PM Other Notes If you have any questions please call us at [phone] or [phone] or [phone] or [phone]
--- NOTE | 2021-12-10 13:40 | Anesthesiology Consultation ---
Date of Service December 10, 2021 Assessment & Plan (1) Encounter for pre-operative examination: - check BSG am DOS. - expected difficult intubation: limited cervical extension. - COVID screening: Per assessment on 12/10/2021: Travel screen negative, no known COVID-19 positive contacts or current COVID-19 related symptoms in past 2 weeks. Surgeon arranging preop COVID testing, scheduled 12/31/2021. Awaiting results. Chart Review Chart Review: Acceptable Risk for Surgery and Patient seen in Pre Admission Testing Teaching & Discussion Pre-Anesthesia Teaching/Discussion Notes: Instructed NPO after midnight before surgery, except medications with 15 cc of water. Medication instructions provided according to the PAT guidelines. History Surgery Operation Date: 01/04/22 11:15 Proposed Procedures p Right Total Shoulder Arthroplasty - Tomas Reyes MD Height/Weight Height: 5 ft 8.5 in Weight: 100.3 kg Allergies Allergy/AdvReac Type Severity Reaction Status Date / Time hydrocodone Allergy Intermediate face Verified 11/30/21 11:28 breaks out acetaminophen Allergy Unknown rash Verified 11/30/21 11:28 Medications Home Medications Medication Instructions Recorded Confirmed Last Taken diclofenac sodium 1 % topical gel 2 gm topical QID PRN pain 11/28/18 11/30/21 Unknown multivitamin 1 tab PO QAM 11/28/18 11/30/21 Unknown blood sugar diagnostic (OneTouch #10 ea 01/30/19 07/06/21 Unknown Ultra Blue Test Strip) cholecalciferol (vitamin D3) 125 5,000 units PO QAM 01/30/19 11/30/21 Unknown mcg (5,000 unit) tablet cyanocobalamin (vitamin B-12) 2,500 mcg sublingual QAM 01/30/19 11/30/21 Unknown 2,500 mcg sublingual tablet lancets 33 gauge (Lite Touch #100 ea 01/30/19 07/06/21 Unknown Lancets) blood-glucose meter #1 ea 02/11/20 07/06/21 Unknown tizanidine 4 mg tablet 4 - 8 mg PO Q8H PRN muscle 10/30/21 11/30/21 Unknown spasticity #60 tabs tramadol 50 mg tablet 50 mg PO BID PRN pain #60 tabs 10/30/21 11/30/21 Unknown duloxetine 30 mg capsule,delayed 30 mg PO PM 11/30/21 11/30/21 Unknown release duloxetine 60 mg capsule,delayed 60 mg PO QAM 11/30/21 11/30/21 Unknown release fexofenadine 180 mg tablet 180 mg PO DAILY PRN Allergy 11/30/21 11/30/21 Unknown Symptoms fluticasone propionate 50 2 spray intranasal DAILY PRN 11/30/21 11/30/21 Unknown mcg/actuation nasal Congestion spray,suspension meloxicam 7.5 mg tablet 7.5 mg PO PM 11/30/21 11/30/21 Unknown omeprazole 20 mg capsule,delayed 20 mg PO QAM 11/30/21 11/30/21 Unknown release Past Medical History Medical History (Updated 12/10/21 @ 14:10 by Letitia Hutton PA-C) Anemia hx of DDD (degenerative disc disease) Diabetes mellitus diet control per pt Expected difficult intubation limited cervical extension. Hyperlipidemia hx of, no longer Neuropathy feet and legs Sensorineural hearing loss (SNHL) of both ears Patient denies h/o stroke, seizures, heart attack, heart failure, HTN, blood clots or blood transfusions. Exercise / Class Metabolic Activity III < 4 Walking/Shop/Light housework (denies CP or SOB with usual activities, no steps in home) Past Family History Family History Father Myocardial infarction Environmental allergies FH: deafness or hearing loss Rheumatoid arthritis Cancer Throat cancer, metastasis to bone Hypertension Grandmother (Paternal) Liver disease Family/Other Diabetes Pure hypercholesterolemia Grandfather (Paternal) Heart disease Mother Hypertension Osteoporosis Stroke Denies family history of Ovarian cancer Prostate cancer Breast cancer Bleeding disorder Past Surgical History Surgical History History of carpal tunnel surgery bilat Hx of shoulder surgery right arthroscopic, left rotator cuff Hx of surgical procedure had "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 Patient denies chest pain, shortness of breath, dyspnea on exertion, snoring, witnessed apneas, reflux, fever, chills, wheezing, or palpitations. Physical Exam Vital Signs Vitals BP 119/77 P 71 TEMP 98.4 SP02 98% on RA RESP 17 Physical Limited cervical extension range of motion with stiffness reported by pt TMD 3.5 finger breadths Mallampati Score 2 Dentition: intact, denies missing, chipped or loose teeth, caps/crowns, implants or bridges Lungs: normal respiratory effort. Clear throughout to auscultation, no adventitious breath sounds Cardiac: regular rate and rhythm, no murmurs noted Carotid arteries: negative bruit bilat Lab Results Anesthesia Preop Results Results Anesthesia Widget: WBC 5.63 K/ul (4.8-10.8) 12/10/21 Hgb 11.6 g/dl (12.0-16.0) L 12/10/21 Hct 34.8 % (34.1-44.9) 12/10/21 Plt 188 K/uL (130-400) 12/10/21 Na 138 mmol/L (136-145) 12/10/21 K 3.7 mmol/L (3.5-5.1) 12/10/21 Cl 105 mmol/L (98-107) 12/10/21 CO2 29 mmol/L (21-32) 12/10/21 BUN 17 mg/dl (6-23) 12/10/21 Creat 0.79 mg/dl (0.6-1.2) 12/10/21 Glucose Level 87 mg/dl (70-99(Fasting)) 12/10/21 PT 11.0 Seconds (9.0-12.0) 12/10/21 PTT 28.1 Seconds (21.0-31.0) 12/10/21 INR 1.0 (0.9-1.1) 12/10/21 HA1c 5.9 % (4.5-5.6) H 12/10/21 Urine Color Yellow 12/10/21 Urine Appearance Clear (Clear) 12/10/21 Urine pH 7.0 (4.5-7.5) 12/10/21 Urine Specific [place] 1.016 (1.000-1.030) 12/10/21 Urine Protein Negative (Negative) 12/10/21 Urine Glucose (UA) Negative (Negative) 12/10/21 Urine Ketones Negative (Negative) 12/10/21 Urine Blood Negative (Negative) 12/10/21 Urine Nitrite Negative (Negative) 12/10/21 Urine Bilirubin Negative (Negative) 12/10/21 Urine Urobilinogen Negative (Negative) 12/10/21 Urine Leukocyte Esterase Negative (Negative) 12/10/21 Blood Type A Negative 12/10/21 Antibody Screen NEGATIVE 12/10/21 Testing Electrocardiogram Date: 12/10/21 NSR, rate 66 bpm Possible left atrial enlargement Chest X-Ray Date: 12/10/21 The lungs are clear. Cardiac silhouette is normal in size. No pleural effusions. No pneumothorax. IMPRESSION: No acute process.
--- NOTE | 2022-01-03 07:03 | History & Physical Report ---
Date of Service January 03, 2022 Assessment & Plan (1) Primary osteoarthritis, right shoulder: Plan: Treatment options discussed with patient. She has failed conservative measures. She would like to proceed with surgical intervention. Risks, benefits and alternatives to surgery including but not limited to infection, DVT, pain, stiffness, need for revision surgery, damage to blood vessels, damage to nerves, PE, , were discussed with the patient and they wish to proceed. Plan on right total shoulder arthroplasty scheduled for [facility] on 01/04/[address] Reyes. Plan on outpatient PT post op. All questions answered. She will follow up post op. History of Present Illness Chief Complaint: Right shoulder pain Primary Care Provider: YESSI Harding 51 year old female with PMHx significant for DM2, high cholesterol, neuropathy who presents with ongoing right shoulder pain. Pain interfering with her daily activities. She has failed conservative measures. Previous arthroscopic subacromial decompression, distal clavicle excision, chondroplasty Grade 4 chondral lesin humeral head. She would like to proceed with replacement. Patient denies headaches, sweats, fevers, chills, double vision, blurred vision, cough, sore throat, dysphagia, chest pain, sob, wheezing, n/v/d/c, numbness, tingling, fatigue, urinary symptoms, mood disorders. ROS positive for right shoulder pain and stiffness. Allergies Allergy/AdvReac Type Severity Reaction Status Date / Time hydrocodone Allergy Intermediate face Verified 12/25/21 12:38 breaks out acetaminophen Allergy Unknown rash Verified 12/25/21 12:38 Home Medications Medication Instructions Recorded Confirmed Type diclofenac sodium 1 % topical gel 2 gm topical QID PRN pain 11/28/18 12/25/21 History multivitamin 1 tab PO QAM 11/28/18 12/25/21 History blood sugar diagnostic (OneTouch #10 ea 01/30/19 12/25/21 History Ultra Blue Test Strip) cholecalciferol (vitamin D3) 125 5,000 units PO QAM 01/30/19 12/25/21 History mcg (5,000 unit) tablet cyanocobalamin (vitamin B-12) 2,500 mcg sublingual QAM 01/30/19 12/25/21 History 2,500 mcg sublingual tablet lancets 33 gauge (Lite Touch #100 ea 01/30/19 12/25/21 History Lancets) blood-glucose meter #1 ea 02/11/20 12/25/21 Rx duloxetine 30 mg capsule,delayed 30 mg PO PM 11/30/21 12/25/21 History release duloxetine 60 mg capsule,delayed 60 mg PO QAM 11/30/21 12/25/21 History release fexofenadine 180 mg tablet 180 mg PO DAILY PRN Allergy 11/30/21 12/25/21 History Symptoms fluticasone propionate 50 2 spray intranasal DAILY PRN 11/30/21 12/25/21 History mcg/actuation nasal Congestion spray,suspension meloxicam 7.5 mg tablet 7.5 mg PO PM 11/30/21 12/25/21 History omeprazole 20 mg capsule,delayed 20 mg PO QAM 11/30/21 12/25/21 History release tizanidine 4 mg tablet 4 - 8 mg PO Q8H PRN muscle 12/25/21 12/25/21 Rx spasticity #60 tabs tramadol 50 mg tablet 50 mg PO BID PRN pain #60 tabs 12/25/21 12/25/21 Rx Past Med/Surg History Medical History Anemia DDD (degenerative disc disease) Diabetes mellitus Expected difficult intubation Hyperlipidemia Neuropathy Sensorineural hearing loss (SNHL) of both ears Surgical History History of carpal tunnel surgery Hx of shoulder surgery Hx of surgical procedure Previous back surgery S/P hip replacement Family History Father Myocardial infarction Environmental allergies FH: deafness or hearing loss Rheumatoid arthritis Cancer Throat cancer, metastasis to bone Hypertension Grandmother (Paternal) Liver disease Family/Other Diabetes Pure hypercholesterolemia Grandfather (Paternal) Heart disease Mother Hypertension Osteoporosis Stroke Denies family history of Ovarian cancer Prostate cancer Breast cancer Bleeding disorder Social History Smoking Status: Current every day smoker (-advised) Cigarettes Per Day: 1-5; Second Hand Exposure: No; Hx Alcohol Use: Yes Hx Substance Use: No Preferred Language: Bulgarian Communication Ability: Effective Slimer Required: No Beliefs That Will Affect Care: None marital status: Current Living Situation: Spouse current occupational status: unemployed and disabled Feels Safe at Home: Yes caffeine: No Dental Care, Regularly: No Physical Activity Frequency: 1-2 Times per Week Physical Activity Frequency Comment: walking Seatbelt Use: always Sunscreen Use: No Assistive Devices: Glasses and Hearing Aid - Bilateral Review of Systems All systems reviewed & are unremarkable except as noted in HPI & below Physical Exam Constitutional: well developed and well nourished; no acute distress Eyes: PERRL, conjunctivae normal, anicteric sclerae ENMT: external ear and nose normal, oropharynx normal Neck: trachea midline, no thyromegaly Respiratory: normal respiratory effort, lungs clear to auscultation Cardiovascular: RRR, no murmur, no edema Musculoskeletal: Right shoulder: Crepitation with ROM. Tenderness anterior shoulder. Positive impingement signs. Painful ROM. FF to 140 degrees, abduction to 100 degrees, ER to 60 degrees. Pain with resistive strength testing. Skin: no rashes, warm and dry Neurologic: patellar DTR's 2+ bilat, sensation intact Psychiatric: A+Ox3, euthymic affect Results & Data ([facility]) Diagnostic Findings Rigth shoulder: She has arthritic change glenohumeral joint with periarticular osteophyte formation. MRI demonstrates intact rotator cuff.
[~2022-01-04 11:12] MED LIST changes: +BUPIVACAINE 0.5 % 5 MG/1 ML PF 10ML VIAL ONE; -CHOL1000 PO; -CYM/30 PO; +CeleBREX 200 MG CAP PO SCH; +FAMOTIDINE 20 MG TAB PO SCH; -FLUT0.15; +GABAPENTIN 900 MG DOSE PO SCH; +LR 15ML/HR IV SCH; +METOCLOPRAMIDE HCL 10 MG TABLET PO SCH; +MIDAZOLAM HCL 1 MG/ML 2ML VIAL ONE; -RBX750 PO; -RXC5 PO; +TRANEXAMIC ACID 1,000 MG **IV Intra-op IV SCH; +TRANEXAMIC ACID 1,000 MG **IV Pre-op IV SCH; +ceFAZolin 2000MG 2,000 MG/15 ML SYR IV SCH; +dexAMETHasone 4 MG TAB PO SCH; +fentaNYL citrate 100 MCG/2 ML VIAL ONE
[2022-01-04] MEDS ORDERED: fentaNYL citrate 100 MCG/2 ML VIAL IV PRN (12:24)
[2022-01-04] MEDS ORDERED: PROMETHAZINE HCL 6.25 MG in SODIUM CHLORIDE 0.9% 50 ML IV PRN (12:24)
[2022-01-04] MEDS ORDERED: ATROPINE SULFATE 0.1 MG/ML 10ML SYR IV PRN (12:24)
[2022-01-04] MEDS ORDERED: KETOROLAC 30 MG/ML VIAL IV PRN (12:24)
[2022-01-04] MEDS ORDERED: ONDANSETRON INJ 2 MG/ML 2 ML VIAL IV PRN ×2 (12:24→18:31)
[2022-01-04] MEDS ORDERED: EPINEPHrine HCL INJ 1 MG/ML 30ML ONE (12:29)
--- NOTE | 2022-01-04 12:42 | History & Physical Bridge Note ---
Date of Service January 04, 2022 History & Physical Bridge Note I have examined the patient, reviewed the History & Physical and in the interval since the performance of the History & Physical I have noted the following changes of clinical significance: no changes noted
[2022-01-04] MEDS ORDERED: LIDOCAINE 2% MPF LOCAL 5 ML VIAL INFIL ONE (13:19)
[2022-01-04] MEDS ORDERED: ONDANSETRON INJ 2 MG/ML 2 ML VIAL ONE ×2 (13:19→13:30)
[2022-01-04] MEDS ORDERED: PROPOFOL IV EMULSION 10 MG/ML 20 ML VIAL IV ONE (13:19)
[2022-01-04] MEDS ORDERED: GLYCOPYRROLATE 0.2 MG/ML VIAL ONE (13:30)
[2022-01-04] MEDS ORDERED: NEOSTIGMINE METHYLSULFATE 1 MG/ML 10ML VIAL ONE (13:30)
[2022-01-04] MEDS ORDERED: DEXAMETHASONE SOD INJ 4 MG/ML VIAL ONE (13:30)
[2022-01-04] MEDS ORDERED: ROCURONIUM BROMIDE 10 MG/ML 5 ML VIAL IV ONE ×7 (13:30→16:24)
[2022-01-04] MEDS ORDERED: ePHEDrine sulfate 50 MG/ML SYR ONE (13:46)
[2022-01-04] MEDS ORDERED: PHENYLEPHRINE 100MCG/ML 5ML SYR ONE (13:46)
[2022-01-04] MEDS ORDERED: PHENYLEPHRINE HCL 10 MG/ML VIAL ONE (14:10)
[2022-01-04] MEDS ORDERED: GELATIN SPONGE SZ 100 ONE (15:13)
[2022-01-04] MEDS ORDERED: THROMBIN FOR SOLN 20000 UNIT KIT ONE (15:13)
[2022-01-04] MEDS ORDERED: ceFAZolin 330 MG/ML 1 GM VIAL ONE (16:39)
--- NOTE | 2022-01-04 17:41 | Operative Report ---
Post Operative Report Pre & Post Diagnosis Operation Date: 01/04/22 13:30 Pre-Op Diagnosis: Right Shoulder glenohumeral osteoarthritis, shoulder stiffness, history of arthroscopic extensive debridement subacromial decompression distal clavicle excision. Post-Op Diagnosis: Right Shoulder glenohumeral osteoarthritis, shoulder stiffness, scarred subacromial bursitis with subdeltoid adhesions, biceps tendinopathy and fibrosis. I identified the patient and participated in the time-out.: Yes Procedure Operation Date: 01/04/22 13:30 Actual Procedures p Right Total Shoulder Arthroplasty with stemless total shoulder replacement, biceps tenodesis.- Tomas Reyes MD Surgeon Tomas Reyes MD Timber Faller Zack MARQUES Estimated Blood Loss 300 Findings Consistent with Post-Op Diagnosis Specimens Humeral head cut Complications Venous tear secondary to retraction with more than typical blood loss requiring treatment with Surgicel, thrombin and Gelfoam. Disposition Disposition: Recovery Room Indications 51-year-old female with chronic right shoulder pain extensive conservative management failed conservative management. She had arthroscopic surgery by Dr. Tenorio with extensive debridement subacromial decompression distal clavicle excision possible biceps tenotomy. Radiographically she still has some joint space remaining but has very large hypertrophic spurs on the inferior humeral head and large glenoid spurs and advanced glenohumeral arthritis. Description of Procedure Patient was taken to the operating room anesthetized under regional block and general anesthetic. Patient was placed in a 30 degree beachchair position with a foam headrest protective eyewear all extremities padded teds and SCDs were placed. A towel roll was placed on the medial border of the scapula of the right upper extremity. The arm was examined and range of motion demonstrated 45 degrees external rotation 40 degrees internal rotation 90 degrees of abduction and and 140 degrees forward flexion. Old arthroscopic scars that are healed. An obese arm with no Ruddy muscle. An anterior deltopectoral approach was performed. Longitudinal incision was made in deltopectoral interval. Skin incised sharply and subcutaneous flaps elevated. The deltopectoral interval was identified. The cephalic vein demonstrated large intact cephalic vein.. The cephalic vein was retracted laterally with the deltoid. There were dense subdeltoid adhesions thickened subacromial bursal scar tissue with an intact rotator cuff. The subdeltoid bursal adhesions had to be released scarred bursa tissue had to be removed with Metzenbaum scissors. The upper centimeter of the pectoralis was released for inferior exposure. Biceps tendon demonstrated fibrotic appearing biceps tendon that was still in the groove.. The biceps was tenodesed to the pectoralis tendon using #2 FiberWire [id number] sutures. Proximal biceps was resected. The circumflex vessels were tied off with silk ties and divided laterally. The subscapularis muscle fibers were split at the level of circumflex vessels and released off the inferior capsule with a Kitner elevator and then a blunt Hohmann retractor was placed protect the axillary nerve. The rotator interval was released down to the level of the glenoid. The subscapularis tendon was taken down with a transtendinous incision leaving a cuff of tissue for repair on the lesser tuberosity. The humeral head findings demonstrated flattening and chronic wear with irregular joint surface not eburnated bone but significant articular thinning. There were large circumferential osteophytes.. The osteophytes were resected using an artist chisel and rongeur. The inferior capsule was released off the bone subperiosteally using a Bolaños elevator. A #1 Vicryl traction suture was placed into the free edge of the subscapularis tendon. A Fukuda retractor was placed into the joint. Capsule was released with Alva scissors down to the glenoid and off of the anterior glenoid to the rotator interval which was released to meet the capsular release creating a 360 degree release of subscapularis tendon. An anterior Bankart retractor was placed. The glenoid and labral findings demonstrated marked degenerative changes throughout the labrum that remained and advanced articular fraying and wear on the glenoid side not eburnated bone however there was a large anterior-inferior loose osteophyte and there was a very large inferior osteophyte on the glenoid.. An anterior-inferior and posterior inferior capsule release was performed electrocautery on bone and a Bolaños elevator. The axillary nerve was protected inferiorly with the blunt Hohmann. I was able to release the capsule directly off the large inferior spur carefully and then used an artist chisel to remove the large spur as well as a rongeur. Attention was taken back to the humeral head. Humeral head was exposed with extension and external rotation. The oscillating saw was used to make an anatomic neck cut removing the articular surface. All the circumferential remaining osteophytes were trimmed with a rongeur. The humerus was sized for a 1 nucleus and a 40 x 18 humeral head. The bone was assessed with a thumb press test and there was very solid cancellous bone. The guide for the nucleus was placed centrally and then the guidepin was placed. The surface reamer was used followed by the central drill for the nucleus. The trial nucleus was inserted and the cut protector was placed. The humerus was retracted posterior to the glenoid . A Tornier retractor ,Hohmann retractors as well as an anterior Bankart retractor were placed. The glenoid was fully exposed. The Tornier Cortiloc glenoid was used. The 30 radius small size was chosen. In order to get the reamer in the appropriate position the patient was noted to have fibrosis tightness of her muscles and despite anterior-inferior and posterior capsular releases the exposure was difficult. We adjusted poste rior glenoid retractor and then brisk bleeding was noted and it was from behind the glenoid posterior inferiorly. This had to be packed off with Surgicel and thrombin allow the bleeding to stop followed by reexposure of the glenoid with different type retractors. The central drill hole was made followed by the reamer for the glenoid followed by widening the central hole for the central post. The guide for the peripheral drill holes was placed and the drill holes were made. The trial reduction performed with stable fixation. The trial removed and the glenoid copiously irrigated with pulsed saline solution. The drill holes were packed with epinephrine-soaked tampons. The Palacos G cement was vacuum mixed. The Tornier small 30 radius Cortiloc glenoid glenoid component was then cemented in position after drying the glenoid after removal of the tampons. Fixation was excellent. All excess cement was cleared. When the cement cured we moved onto removing the cut protector doing a trial reduction with a 40 x 18 millimeter humeral head trial. Stability was assessed and was stable. Soft tissue tension on the subscapularis tendon was satisfactory. The trial components of the humeral head were removed and the cut protector was replaced. Retractors were gently replaced and was noted that there was hemostasis from the Surgicel which was removed and substituted with Gelfoam and thrombin spray which was packed temporarily observed and after noticing no active bleeding at all attention was taken back to placement of the final implants. Surface of the bone was copiously irrigated. the 3 drill holes were made in the harder bone in the biceps groove area and transosseous #5 FiberWire sutures were placed. Then the humeral cut surface was reexposed with retractors and after irrigation the size 1 nucleus was impacted leaving it slightly proud until the 48 x 18 simplicity humeral head humeral head was placed into the nucleus and then both were impacted into the humerus with a tight press-fit. The humerus was reduced to the glenoid. The stability was verified. The subscapularis tendon was repaired with [id number] #5 FiberWire sutures placed in Peter-Ángel suture technique and lateral row fixation was performed with interrupted [id number] #2 FiberWire sutures and rotator interval was closed with #2 FiberWire sutures. Range of motion demonstrated 150 degrees of forward flexion 110 degrees abduction external rotation to 60 degrees internal rotation to 60 degrees without any tension on repair without tension on repair. The pectoralis was repaired with [id number] #2 FiberWire sutures placing sutures back through the biceps tendon to reinforce the tenodesis. 2 Hemovac drains were placed. The deltopectoral interval was repaired with figure-of-e ight #1 Vicryl sutures. The subcutaneous tissue was repaired with 2-0 Vicryl sutures and the skin was closed with patricia. Sterile dressings were applied and a sling immobilizer. The patient tolerated the procedure well. Zack MARQUES acted as obstetric assistant throughout the procedure. He functioned as obstetric assistant assisting in all aspects of the procedure including patient positioning prepping draping, arm positioning, soft tissue retraction,, instrument management, subcutaneous and skin closure and postop care the patient as well. I attest to the content of the Intraoperative Record and any orders documented therein. Any exceptions are noted below.
--- NOTE | 2022-01-04 18:05 | XRay Report ---
XR shoulder RT min 2V routine CLINICAL HISTORY: Post shoulder surgery COMPARISON: None FINDINGS: Alignment of the right shoulder arthroplasty is anatomic. There is no periprosthetic fract ure or unexpected radiopaque foreign body. Drains and skin patricia are present. IMPRESSION: Expected findings following right shoulder arthroplasty. ACT 112: Negative or not required by law. Electronically signed by: Charles Fung M.D. 01/04/2022 6:04 PM
--- NOTE | 2022-01-04 18:06 | Anesthesiology Progress Note ---
Date of Service January 04, 2022 Anesthesia Post Procedure Vital Signs Vital Signs: Temp Pulse Pulse Resp BP Pulse Ox O2 Del Method 01/04/22 18:00 62 20 115/62 98 Nasal Cannula 01/04/22 17:50 66 21 120/68 98 Nasal Cannula 01/04/22 17:40 61 20 116/58 L 99 Oxymask 01/04/22 17:33 36.5 C 57 L 24 118/59 L 98 Oxymask 01/04/22 11:18 36.8 C 70 16 99/72 L 97 Room Air O2 Flow Rate 01/04/22 18:00 2 01/04/22 17:50 2 01/04/22 17:40 6 01/04/22 17:33 6 01/04/22 11:18 Pain Intensity Right Shoulder: Pain Intensity: 6 Transfer of Care Handoff Completed per policy Notes Mental Status: alert / awake / arousable and participated in evaluation Patient Amnestic to Procedure: Yes Nausea / Vomiting: adequately controlled Pain: adequately controlled Airway Patency, RR, SpO2: stable & adequate BP & HR: stable & adequate Hydration State: stable & adequate Anesthetic Complications: no major complications apparent and Pt Satisfied with anesthetic care
[2022-01-04] MEDS ORDERED: bisacodyL 10 MG SUPP PR PRN (18:31)
[2022-01-04] MEDS ORDERED: FLUTICASONE PROPIONATE NA SPR 16 GM BTL PRN (18:31)
[2022-01-04] MEDS ORDERED: FEXOFENADINE HCL 180 MG TAB PO PRN (18:31)
[2022-01-04] MEDS ORDERED: PHARMACY GLYCEMIC MGMT CONSULT PRN (18:31)
[2022-01-04] MEDS ORDERED: MAGNESIUM HYDROXIDE SUSP 30 ML UDC PO PRN (18:31)
[2022-01-04] MEDS ORDERED: tiZANidine HCL 4 MG TABLET PO PRN (18:31)
[2022-01-04] MEDS ORDERED: oxyCODONE HCL IR 5 MG TAB (IMMEDIATE RELEASE) PO PRN (18:31)
[2022-01-04] MEDS ORDERED: HYDROmorphone INJ 0.5 MG/0.5 ML SYR IV PRN (18:31)
[2022-01-04] MEDS ORDERED: METOCLOPRAMIDE HCL INJ 5 MG/ML 2 ML VIAL IV PRN (18:31)
[2022-01-04] MEDS ORDERED: NALOXONE HCL 0.4 MG/1 ML VIAL/CARP IV PRN (18:31)
[2022-01-04] MEDS ORDERED: SENNA 8.6 MG TAB PO SCH (21:00)
[2022-01-04] MEDS ORDERED: DULoxetine HCL 30 MG CAP PO SCH (21:00)
[2022-01-04] MEDS: SODIUM CHLORIDE 0.9% 1000ML 1,000 ML IV SCH (21:40)
[2022-01-04] MEDS: DOCUSATE SODIUM 100 MG CAP PO SCH (21:50)
[2022-01-04] MEDS: INSULIN ASPART PER UNIT SC SCH (23:45)
[2022-01-05] MEDS: ceFAZolin 2000MG 2,000 MG/15 ML SYR IV SCH ×2 (00:18→08:52)
[2022-01-05] MEDS: INSULIN ASPART PER UNIT SC SCH ×3 (00:24→08:04)
[2022-01-05] MEDS: SODIUM CHLORIDE 0.9% 1000ML 1,000 ML IV SCH (05:55)
[2022-01-05 06:58] VITALS: TEMP 98.8; O2SAT 97
[2022-01-05 07:04] LABS: Hematocrit (blood only) 31.3 % (34.1-44.9); Hemoglobin 10.3 g/dl (12.0-16.0); Immature Granulocytes # (auto) 0.03 K/uL (0.00-0.02); Immature Granulocytes % (auto) 0.3 %; Lymphocytes # (auto) 1.22 K/uL (1.2-3.4); Lymphocytes % (auto) 11.6 %; Mean Corpuscular Hemoglobin 31.2 pg (25.0-34.0); Mean Corpuscular Hgb Conc 32.9 g/dL (32.0-36.0); Mean Corpuscular Volume 94.8 fL (80.0-100.0); Mean Platelet Volume 11.3 fL (9.4-12.3); Monocytes # (auto) 0.74 K/uL (0.24-0.82); Neutrophils # (auto) 8.56 K/uL (1.4-6.5); Neutrophils % (auto) 81.1 %; Platelet Count 174 K/uL (130-400); RDW Coefficient of Variation 12.9 % (11.5-14.5); RDW Standard Deviation 44.9 fL (36.4-46.3); White Blood Count 10.55 K/ul (4.8-10.8)
--- NOTE | 2022-01-05 07:28 | Hospitalist Consultation ---
Date of Consultation January 05, 2022 Assessment & Plan (1) Primary osteoarthritis, right shoulder: POD# 1 p Right Total Shoulder Arthroplasty with stemless total shoulder replacement, biceps tenodesis.- Tomas Reyes MD. EBL 300cc Pre-op hgb 11.6--> 10.6, acute blood loss anemia in patient with baseline anemia as well as dilutional from IVF Pain control, bowel regimen, PT/OT, DVT prophylaxis per primary service (2) DM (diabetes mellitus): diet controlled, last A1c 5.9 outpatient followup (3) Vitamin D deficiency: continue home supplementation (4) HLA-B27 spondyloarthropathy: continue pain control, duloxetine for neuropathy as well (also on B12), GERD -- Continue PPI or formulary History of Present Illness Reason for Consultation: medical management Requesting Physician: Dr Reyes Attending Physician: Tomas Reyes MD History of Present Illness 51yo female with PMHx significant for DM II (A1c 5.9), HLD, HLA-B27 spondylarthropathy, anemia (hgb 11.6), DDD presented for RIGHT total shoulder arthroplasty with Dr Reyes on 10/04. Allergies Allergy/AdvReac Type Severity Reaction Status Date / Time hydrocodone Allergy Intermediate face Verified 12/25/21 12:38 breaks out acetaminophen Allergy Unknown rash Verified 12/25/21 12:38 seasonal allergies Allergy Intermediate itching Uncoded 01/04/22 11:37 watery eyes dry mouth ans throat Home Medications Medication Instructions Recorded Confirmed Type diclofenac sodium 1 % topical gel 2 gm topical QID PRN pain 11/28/18 01/04/22 History multivitamin 1 tab PO QAM 11/28/18 01/04/22 History blood sugar diagnostic (OneTouch #10 ea 01/30/19 12/25/21 History Ultra Blue Test Strip) cholecalciferol (vitamin D3) 125 5,000 units PO QAM 01/30/19 12/25/21 History mcg (5,000 unit) tablet cyanocobalamin (vitamin B-12) 2,500 mcg sublingual QAM 01/30/19 01/04/22 History 2,500 mcg sublingual tablet lancets 33 gauge (Lite Touch #100 ea 01/30/19 12/25/21 History Lancets) blood-glucose meter #1 ea 02/11/20 12/25/21 Rx duloxetine 30 mg capsule,delayed 30 mg PO PM 11/30/21 01/04/22 History release duloxetine 60 mg capsule,delayed 60 mg PO QAM 11/30/21 01/04/22 History release fexofenadine 180 mg tablet 180 mg PO DAILY PRN Allergy 11/30/21 01/04/22 History Symptoms fluticasone propionate 50 2 spray intranasal DAILY PRN 11/30/21 01/04/22 History mcg/actuation nasal Congestion spray,suspension meloxicam 7.5 mg tablet 7.5 mg PO PM 11/30/21 01/04/22 History omeprazole 20 mg capsule,delayed 20 mg PO QAM 11/30/21 01/04/22 History release tizanidine 4 mg tablet 4 - 8 mg PO Q8H PRN muscle 12/25/21 01/04/22 Rx spasticity #60 tabs tramadol 50 mg tablet 50 mg PO BID PRN pain #60 tabs 12/25/21 01/04/22 Rx Patient History Medical History Anemia DDD (degenerative disc disease) Diabetes mellitus Expected difficult intubation Hyperlipidemia Neuropathy Sensorineural hearing loss (SNHL) of both ears Surgical History History of carpal tunnel surgery Hx of shoulder surgery Hx of surgical procedure Previous back surgery S/P hip replacement Family History Father Myocardial infarction Environmental allergies FH: deafness or hearing loss Rheumatoid arthritis Cancer Throat cancer, metastasis to bone Hypertension Grandmother (Paternal) Liver disease Family/Other Diabetes Pure hypercholesterolemia Grandfather (Paternal) Heart disease Mother Hypertension Osteoporosis Stroke Denies family history of Ovarian cancer Prostate cancer Breast cancer Bleeding disorder Social History Smoking Status: Current every day smoker (-advised) Cigarettes Per Day: 1-5; Second Hand Exposure: No; Do You Dip or Chew Tobacco: No; Tobacco Cessation Education Requested by Patient: No Hx Alcohol Use: Yes Hx Substance Use: No Preferred Language: Mexican Communication Ability: Effective 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 Beliefs That Will Affect Care: None marital status: Current Living Situation: Spouse current occupational status: unemployed and disabled Other Information That Helps Us Care for You: No Feels Safe at Home: Yes Safety Concerns: Feels Safe At This Time caffeine: No Dental Care, Regularly: No Physical Activity Frequency: 1-2 Times per Week Physical Activity Frequency Comment: walking Seatbelt Use: always Sunscreen Use: No Assistive Devices: Glasses and Hearing Aid - Bilateral Results & Data Results & Data ([facility]) Vital Signs (Past 12 Hours) Vital Signs Temp Pulse Resp BP Pulse Ox O2 Del Method O2 Flow Rate 01/05/22 06:57 37.1 C 72 16 101/63 97 Room Air 01/05/22 02:04 36.9 C 69 20 102/65 92 Nasal Cannula 2.0 01/04/22 19:30 Nasal Cannula 2 01/04/22 21:35 36.9 C 82 16 113/67 95 Nasal Cannula 2.0 01/04/22 20:05 36.6 C 82 18 102/68 96 Nasal Cannula 2.0 01/04/22 19:35 36.4 C L 82 18 105/69 96 Nasal Cannula 2.0 PG Care Time/CCT Total # of Minutes Spent Total Time Spent with Patient: Total time spent is greater than 50% in coordination of care (as documented) at patient's floor/unit and/or counseling patient: Coding Diagnoses Primary osteoarthritis, right shoulder M19.011 DM (diabetes mellitus) E11.9 Vitamin D deficiency E55.9 HLA-B27 spondyloarthropathy M47.899
[2022-01-05 07:32] LABS: BUN Creatinine Ratio 19.2 (10-20); Calcium 8.9 mg/dl (8.5-10.1); Est GFR (African American) 109.7 ml/min; Est GFR (Non-African American) 94.7 ml/min; Potassium 4.2 mmol/L (3.5-5.1)
--- NOTE | 2022-01-05 07:55 | Orthopedic Progress Note ---
Date of Service January 05, 2022 Assessment & Plan (1) Primary osteoarthritis, right shoulder: Plan: Postop day 1 status post right TSA PT/OT protocols. Nonweightbearing right upper extremity DVT prophylaxis-SCD's Pain management as written DC planning-patient is planning for home health services upon discharge. Frank for discharge to home today. Admission and Anticipated Discharge Date Admission Date: January 04, 2022 Subjective Postop day 1 Patient sitting up in bed awake and alert. No complaints this morning. Pain is controlled. She states she still has some residual numbness from her nerve block that has been working well. Physical Exam Physical Exam: Dressings are clean, dry, and intact. Denies pain in the elbow or wrist. No pain in the shoulder. He has numbness over a good portion of her upper extremity down to her fingertips. She is able to move all of her fingers at this time with noted decreased sensation. Capillary refill is less than 2 seconds. Wrist range of motion is intact. Results & Data ([facility]) Vital Signs (Past 12 Hours) Vital Signs Temp Pulse Resp BP Pulse Ox O2 Del Method O2 Flow Rate 01/05/22 06:57 37.1 C 72 16 101/63 97 Room Air 01/05/22 02:04 36.9 C 69 20 102/65 92 Nasal Cannula 2.0 01/04/22 21:35 36.9 C 82 16 113/67 95 Nasal Cannula 2.0 01/04/22 20:05 36.6 C 82 18 102/68 96 Nasal Cannula 2.0 Laboratory Results Laboratory Results WBC 10.55 K/ul (4.8-10.8) 01/05/22 06:37 RBC 3.30 M/uL (3.93-5.22) L 01/05/22 06:37 Hgb 10.3 g/dl (12.0-16.0) L 01/05/22 06:37 Hct 31.3 % (34.1-44.9) L 01/05/22 06:37 MCV 94.8 fL (80.0-100.0) 01/05/22 06:37 MCH 31.2 pg (25.0-34.0) 01/05/22 06:37 MCHC 32.9 g/dL (32.0-36.0) 01/05/22 06:37 RDW Std Deviation 44.9 fL (36.4-46.3) 01/05/22 06:37 RDW Coeff of Doreen 12.9 % (11.5-14.5) 01/05/22 06:37 Plt Count 174 K/uL (130-400) 01/05/22 06:37 MPV 11.3 fL (9.4-12.3) 01/05/22 06:37 Immature Gran % (Auto) 0.3 % 01/05/22 06:37 Neut % (Auto) 81.1 % 01/05/22 06:37 Lymph % (Auto) 11.6 % 01/05/22 06:37 [place] % (Auto) 7.0 % 01/05/22 06:37 Eos % (Auto) 0.0 % 01/05/22 06:37 Baso % (Auto) 0.0 % 01/05/22 06:37 Neut # (Auto) 8.56 K/uL (1.4-6.5) H 01/05/22 06:37 Lymph # (Auto) 1.22 K/uL (1.2-3.4) 01/05/22 06:37 [place] # (Auto) 0.74 K/uL (0.24-0.82) 01/05/22 06:37 Eos # (Auto) 0.00 K/uL (0-0.50) 01/05/22 06:37 Baso # (Auto) 0.00 K/uL (0-0.2) 01/05/22 06:37 Immature Gran # (Auto) 0.03 K/uL (0.00-0.02) H 01/05/22 06:37 Sodium 142 mmol/L (136-145) 01/05/22 06:37 Potassium 4.2 mmol/L (3.5-5.1) 01/05/22 06:37 Chloride 109 mmol/L (98-107) H 01/05/22 06:37 Carbon Dioxide 27 mmol/L (21-32) 01/05/22 06:37 Anion Gap 6 (3-11) 01/05/22 06:37 BUN 14 mg/dl (6-23) 01/05/22 06:37 Creatinine 0.73 mg/dl (0.6-1.2) 01/05/22 06:37 Est Cr Clr Drug Dosing 112.0 ml/min 01/05/22 06:37 Est GFR ( Amer) 109.7 ml/min 01/05/22 06:37 Est GFR (Non-Af Amer) 94.7 ml/min 01/05/22 06:37 BUN/Creatinine Ratio 19.2 (10-20) 01/05/22 06:37 Glucose 111 mg/dl (70-99(Fasting)) H 01/05/22 06:37 POC Glucose 116 mg/dl (70-99) H 01/05/22 04:42 Calcium 8.9 mg/dl (8.5-10.1) 01/05/22 06:37 POC Ur Test NEG (NEG) 01/04/22 11:20 Impressions Shoulder X-Ray 01/04/22 17:39 XR shoulder RT min 2V routine CLINICAL HISTORY: Post shoulder surgery COMPARISON: None FINDINGS: Alignment of the right shoulder arthroplasty is anatomic. There is no periprosthetic fracture or unexpected radiopaque foreign body. Drains and skin patricia are present. IMPRESSION: Expected findings following right shoulder arthroplasty. ACT 112: Negative or not required by law. Electronically signed by: Charles Fung M.D. 01/04/2022 6:04 PM
[2022-01-05] MEDS: DOCUSATE SODIUM 100 MG CAP PO SCH (08:19)
--- NOTE | 2022-01-05 08:38 | Communication Note ---
Date of Service: January 05, 2022 Discussed with Eboni HERNANDEZ. Labs look good, patient doing well. Official consultation cancelled as patient plans for discharge today.
[2022-01-05] MEDS ORDERED: CYANOCOBALAMIN (B-12) 2,500 MCG TABLET SL SCH (09:00)
[2022-01-05] MEDS ORDERED: PANTOprazole 40 MG TAB PO SCH (09:00)
[2022-01-05] MEDS ORDERED: CHOLECALCIFEROL 5,000 UNITS 125 MCG TAB PO SCH (09:00)
[2022-01-05] MEDS ORDERED: DULoxetine HCL 60 MG CAP PO SCH (09:00)
[2022-01-05] MEDS ORDERED: MULTIVITAMIN TAB PO SCH ×2 (09:00)
[2022-01-05 11:33] VITALS: BP 131/78; PULSE 74
--- NOTE | 2022-01-06 10:16 | Discharge Summary ---
Date of Service January 06, 2022 Admission HPI Per Admitting Provider 51 year old female with PMHx significant for DM2, high cholesterol, neuropathy who presents with ongoing right shoulder pain. Pain interfering with her daily activities. She has failed conservative measures. Previous arthroscopic subacromial decompression, distal clavicle excision, chondroplasty Grade 4 chondral lesin humeral head. She would like to proceed with replacement. Patient denies headaches, sweats, fevers, chills, double vision, blurred vision, cough, sore throat, dysphagia, chest pain, sob, wheezing, n/v/d/c, numbness, tingling, fatigue, urinary symptoms, mood disorders. ROS positive for right shoulder pain and stiffness. Admission Exam Per Admitting Provider Constitutional: well developed and well nourished; no acute distress Eyes: PERRL, conjunctivae normal, anicteric sclerae ENMT: external ear and nose normal, oropharynx normal Neck: trachea midline, no thyromegaly Respiratory: normal respiratory effort, lungs clear to auscultation Cardiovascular: RRR, no murmur, no edema Musculoskeletal: Right shoulder: Crepitation with ROM. Tenderness anterior shoulder. Positive impingement signs. Painful ROM. FF to 140 degrees, abduction to 100 degrees, ER to 60 degrees. Pain with resistive strength testing. Skin: no rashes, warm and dry Neurologic: patellar DTR's 2+ bilat, sensation intact Psychiatric: A+Ox3, euthymic affect Principal Diagnosis Right shoulder osteoarthritis Discharge Exam Dressings are clean, dry, and intact. Denies pain in the elbow or wrist. No pain in the shoulder. He has numbness over a good portion of her upper extremity down to her fingertips. She is able to move all of her fingers at this time with noted decreased sensation. Capillary refill is less than 2 secon ds. Wrist range of motion is intact. Constitutional well developed and well nourished; no acute distress Discharge Data Allergies Allergy/AdvReac Type Severity Reaction Status Date / Time hydrocodone Allergy Intermediate face Verified 12/25/21 12:38 breaks out acetaminophen Allergy Unknown rash Verified 12/25/21 12:38 seasonal allergies Allergy Intermediate itching Uncoded 01/04/22 11:37 watery eyes dry mouth ans throat Procedures Performed Operation Date: 01/04/22 13:30 Actual Procedures p Right Total Shoulder Arthroplasty(Right) - Tomas Reyes MD Ordered Studies 01/04/22 05:00 US - OR guided needle placemen Routine Hospital Course (1) Primary osteoarthritis, right shoulder: Postop day 1 status post right TSA PT/OT protocols. Nonweightbearing right upper extremity DVT prophylaxis-SCD's Pain management as written DC planning-patient is planning for home health services upon discharge. Frank for discharge to home today. Lab Results 01/04/22 01/04/22 01/04/22 Range/Units 11:20 11:44 17:37 WBC (4.8-10.8) K/ul RBC (3.93-5.22) M/uL Hgb (12.0-16.0) g/dl Hct (34.1-44.9) % MCV (80.0-100.0) fL MCH (25.0-34.0) pg MCHC (32.0-36.0) g/dL RDW Std Deviation (36.4-46.3) fL RDW Coeff of Doreen (11.5-14.5) % Plt Count (130-400) K/uL MPV (9.4-12.3) fL Immature Gran % (Auto) % Neut % (Auto) % Lymph % (Auto) % [place] % (Auto) % Eos % (Auto) % Baso % (Auto) % Neut # (Auto) (1.4-6.5) K/uL Lymph # (Auto) (1.2-3.4) K/uL [place] # (Auto) (0.24-0.82) K/uL Eos # (Auto) (0-0.50) K/uL Baso # (Auto) (0-0.2) K/uL Immature Gran # (Auto) (0.00-0.02) K/uL Sodium (136-145) mmol/L Potassium (3.5-5.1) mmol/L Chloride (98-107) mmol/L Carbon Dioxide (21-32) mmol/L Anion Gap (3-11) BUN (6-23) mg/dl Creatinine (0.6-1.2) mg/dl Est Cr Clr Drug Dosing ml/min Est GFR ( Amer) ml/min Est GFR (Non-Af Amer) ml/min BUN/Creatinine Ratio (10-20) Glucose (70-99(Fasting)) mg/dl POC Glucose 90 142 H (70-99) mg/dl Calcium (8.5-10.1) mg/dl POC Ur Test NEG (NEG) 01/04/22 01/05/22 01/05/22 Range/Units 19:44 00:16 04:42 WBC (4.8-10.8) K/ul RBC (3.93-5.22) M/uL Hgb (12.0-16.0) g/dl Hct (34.1-44.9) % MCV (80.0-100.0) fL MCH (25.0-34.0) pg MCHC (32.0-36.0) g/dL RDW Std Deviation (36.4-46.3) fL RDW Coeff of Doreen (11.5-14.5) % Plt Count (130-400) K/uL MPV (9.4-12.3) fL Immature Gran % (Auto) % Neut % (Auto) % Lymph % (Auto) % [place] % (Auto) % Eos % (Auto) % Baso % (Auto) % Neut # (Auto) (1.4-6.5) K/uL Lymph # (Auto) (1.2-3.4) K/uL [place] # (Auto) (0.24-0.82) K/uL Eos # (Auto) (0-0.50) K/uL Baso # (Auto) (0-0.2) K/uL Immature Gran # (Auto) (0.00-0.02) K/uL Sodium (136-145) mmol/L Potassium (3.5-5.1) mmol/L Chloride (98-107) mmol/L Carbon Dioxide (21-32) mmol/L Anion Gap (3-11) BUN (6-23) mg/dl Creatinine (0.6-1.2) mg/dl Est Cr Clr Drug Dosing ml/min Est GFR ( Amer) ml/min Est GFR (Non-Af Amer) ml/min BUN/Creatinine Ratio (10-20) Glucose (70-99(Fasting)) mg/dl POC Glucose 158 H 175 H 116 H (70-99) mg/dl Calcium (8.5-10.1) mg/dl POC Ur Test (NEG) 01/05/22 01/05/22 01/05/22 Range/Units 06:37 06:37 08:03 WBC 10.55 (4.8-10.8) K/ul RBC 3.30 L (3.93-5.22) M/uL Hgb 10.3 L (12.0-16.0) g/dl Hct 31.3 L (34.1-44.9) % MCV 94.8 (80.0-100.0) fL MCH 31.2 (25.0-34.0) pg MCHC 32.9 (32.0-36.0) g/dL RDW Std Deviation 44.9 (36.4-46.3) fL RDW Coeff of Doreen 12.9 (11.5-14.5) % Plt Count 174 (130-400) K/uL MPV 11.3 (9.4-12.3) fL Immature Gran % (Auto) 0.3 % Neut % (Auto) 81.1 % Lymph % (Auto) 11.6 % [place] % (Auto) 7.0 % Eos % (Auto) 0.0 % Baso % (Auto) 0.0 % Neut # (Auto) 8.56 H (1.4-6.5) K/uL Lymph # (Auto) 1.22 (1.2-3.4) K/uL [place] # (Auto) 0.74 (0.24-0.82) K/uL Eos # (Auto) 0.00 (0-0.50) K/uL Baso # (Auto) 0.00 (0-0.2) K/uL Immature Gran # (Auto) 0.03 H (0.00-0.02) K/uL Sodium 142 (136-145) mmol/L Potassium 4.2 (3.5-5.1) mmol/L Chloride 109 H (98-107) mmol/L Carbon Dioxide 27 (21-32) mmol/L Anion Gap 6 (3-11) BUN 14 (6-23) mg/dl Creatinine 0.73 (0.6-1.2) mg/dl Est Cr Clr Drug Dosing 112.0 ml/min Est GFR ( Amer) 109.7 ml/min Est GFR (Non-Af Amer) 94.7 ml/min BUN/Creatinine Ratio 19.2 (10-20) Glucose 111 H (70-99(Fasting)) mg/dl POC Glucose 112 H (70-99) mg/dl Calcium 8.9 (8.5-10.1) mg/dl POC Ur Test (NEG) Total Time Total Time Spent Total Time Spent (In Minutes): 20 Discharge Plan Discharge Items Patient Disposition: Home - Home Health Services Reason For Visit: Right shoulder osteoarthritis Discharge Diagnosis: Right shoulder osteoarthritis Activity: Per Instructions section Weightbearing: Right non-weightbearing Non-emergency contact: Surgeon Call non-emergency contact if: you have any medication questions, your pain is unusual for you, your temperature is above 101.5, your wound has increased redness and your wound has increased drainage Follow-up/Referrals: [facility] [Outside] (Per surgeon's office.) [facility] [Outside] Chen Cazares CRNP [Primary Care Provider] - 01/12/22 9:00 am Tomas Reyes MD [Surgeon] - (Follow-up in 2 weeks from the day of your surgery for your first checkup) Diet: Carb Consistent or DM2 Addtl Attending Provider Instructions: ACTIVITY RECOMMENDATIONS: SELF CARE INSTRUCTIONS AFTER TOTAL SHOULDER ARTHROPLASTY A. You may do daily exercises as taught in physical therapy while in hospital. No lifting with the operative arm. Please schedule your outpatient physical therapy appointment to begin within 2-3 days after leaving the hospital. Specific restrictions will be written on your physical therapy prescription that is provided to you. B. You are to wear your sling/immobilizer at all times EXCEPT when performing your daily exercises, participating in physical therapy and for hygiene purposes. C. You may perform dry, daily dressing changes. Please keep your incision covered. You may shower 48 hours after surgery. Do not apply soap or any ointment/lotions directly over incision. Do not soak incision in bath tub/swimming pool. D. You may use ice as needed to operative shoulder. SPECIAL CARE INSTRUCTIONS: MEDICATION INSTRUCTIONS: *It is recommended you take Aspirin 325mg daily for four weeks post-op. VERY IMPORTANT TO READ AND REVIEW A. There are a few signs you need to watch for after you are home. Call [facility] at [phone] if you experience any of the followin. Increased severe shoulder pain. Some pain is expected especially when you exercise. 2. Increased swelling in you shoulder or arm; pain or swelling in either upper extremity. 3. Any fluid drainage from the incision. 4. Shortness of breath or chest pain. B. Please call [facility] at [phone] if you have any questions or concerns about your operation or recovery. C. Call your physician if: 1. Temperature is greater than 101 degrees (F). 2. Pain is not relieved by prescribed pain medications. 3. Increase drainage or redness from incision. 4. Unanswered questions or concerns. FOLLOW UP VISIT: Please call [facility] at [phone] to schedule a follow up appointment with Dr. Reyes or his PA in 12-14 days from your surgery date. Stand-Alone Forms: My [facility] [employer], Opioid Pain Management, Smoking Cessation Medications and DC Order Prescriptions: New cefadroxil 500 mg capsule 500 mg PO BID Qty: 14 0RF aspirin [Ecotrin Low Strength] 81 mg tablet,delayed release (DR/EC) 81 mg PO DAILY 30 Days Qty: 30 0RF oxycodone 5 mg tablet 5 mg PO Q4H MDD 6 PRN (Reason: pain) Qty: 30 0RF Continued (DME) blood-glucose meter Kit See Rx Instructions .ROUTE .MEDSUPPLY Qty: 1 0RF Rx Instructions: test 1-2 x a day as needed cyanocobalamin (vitamin B-12) 2,500 mcg tablet, sublingual 2,500 mcg SL QAM Label Comments: *Confirm dosage and frequency diclofenac sodium 1 % gel 2 gm topical QID PRN (Reason: pain) multivitamin tablet 1 tab PO QAM (DME) OneTouch Ultra Blue Test Strip strip See Dose Instructions .ROUTE .MEDSUPPLY Qty: 10 Rx Instructions: Test blood sugar 1 to 2 times daily (DME) lancets [Lite Touch Lancets] 33 gauge misc See Dose Instructions .ROUTE .MEDSUPPLY Qty: 100 Rx Instructions: Test blood sugar 1 to 2 times daily cholecalciferol (vitamin D3) 5,000 unit tablet 5,000 units PO QAM tizanidine 4 mg tablet 4 - 8 mg PO Q8H PRN (Reason: muscle spasticity) Qty: 60 8RF fexofenadine 180 mg Tablet 180 mg PO DAILY PRN (Reason: Allergy Symptoms) omeprazole 20 mg capsule,delayed release(DR/EC) 20 mg PO QAM fluticasone propionate 50 mcg/actuation spray,suspension 2 spray intranasal DAILY PRN (Reason: Congestion) duloxetine 30 mg capsule,delayed release(DR/EC) 30 mg PO PM duloxetine 60 mg capsule,delayed release(DR/EC) 60 mg PO QAM Discontinued tramadol 50 mg tablet 50 mg PO BID PRN (Reason: pain) Qty: 60 0RF meloxicam 7.5 mg tablet 7.5 mg PO PM Discharge Orders: Discharge Order (Routine); Ordered 01/05/22 Ordered By: Karlos Moreno/Other Patient Handouts: DVT Post Op Prevention Admission Data Admit Date/Time: 01/04/22 17:39 Attending Provider: Tomas Reyes Admit Provider: Tomas Reyes Primary Care Provider: Chen Cazares Other Providers: [facility],Home Health Other Interventions: Discharge Summary Assessment (RN) Last Done: 01/05/22 10:48
== END 2022-01-05 12:00 | disposition home health service (06) ==
LOC: ASU 11:12 → PACUINP 11:12 → 3E 20:08
DX: M75.21 Bicipital tendinitis, right shoulder; F17.210 Nicotine dependence, cigarettes, uncomplicated; M75.51 Bursitis of right shoulder; Z88.8 Allergy status to other drugs, medicaments and biological substances; E11.9 Type 2 diabetes mellitus without complications; M75.01 Adhesive capsulitis of right shoulder; Z88.5 Allergy status to narcotic agent; M25.611 Stiffness of right shoulder, not elsewhere classified; Z79.899 Other long term (current) drug therapy; E78.5 Hyperlipidemia, unspecified; M19.011 Primary osteoarthritis, right shoulder